=== PATIENT | male | born 1945 | race Two or more races ===

== ENCOUNTER 2024-05-30 10:48 | Outpatient (RCR) | payer MEDICARE, MEDICAID, SELFPAY ==
--- NOTE | 2024-05-30 11:12 | CTCFLWUP_ITS ---
[facility] [address] [place], [place] [address] FOLLOW-UP NOTE Date: 05/30/2024 MR#: [id number] Name: SHANELLE PITT : 1945 Dx: C61 Malignant neoplasm of prostate Identification. Patient was prostate CA Wendi score 6 status post radical prostatectomy performed 07/15/2023. pT2pN0. Patient's PSA manny to 4.24 in early 2023 and 6 months Lupron shot was given in [place] which should last till March according to family. 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 Patient then resumed his Lupron 04/24/2024. Labs 03/30/2024 revealed PSA less than 0.10. A#1. Radical prostatectomy performed for prostate CA 07/15/2023 pT2pN0 In [place]. Pathology reviewed by on 12/15/2023. A#2. Postop radiation for rising PSA of 4.24 along with concomitant Lupron injections. A#3. Most recent PSA less than 0.10 9 12 16. A#4. Follow-up in 3 months with another Lupron shot in June. Electronically signed by: Medhat Garnett M.D. 05/30/2024 11:09 AM
== END 2024-06-24 23:59 | disposition home or self-care (01) ==
LOC: SCTC 10:48
PROVIDERS: PCP Physician Assistant; Referring Provider Physician Assistant; Visit Provider Radiology Therapeutic Radiology
DX: C61 Malignant neoplasm of prostate (principal); Z90.79 Acquired absence of other genital organ(s); Z79.818 Long term (current) use of other agents affecting estrogen receptors and estrogen levels; Z92.3 Personal history of irradiation
CPT/HCPCS: 99213; G0463

== ENCOUNTER 2024-07-24 09:37 | Outpatient (RCR) | payer MEDICARE, MEDICAID, SELFPAY | END 2024-07-25 23:59 | disposition home or self-care (01) | LOC: SCTC 09:37 | PROVIDERS: PCP Physician Assistant; Referring Provider Physician Assistant; Visit Provider Radiology Therapeutic Radiology | DX: Z51.11 Encounter for antineoplastic chemotherapy (principal); C61 Malignant neoplasm of prostate; Z90.79 Acquired absence of other genital organ(s); Z92.3 Personal history of irradiation | CPT/HCPCS: 96402; J9217 ==

== ENCOUNTER 2024-08-03 13:07 | Outpatient (RCR) | payer MEDICARE, MEDICAID, SELFPAY ==
--- NOTE | 2024-08-03 14:07 | CTCFLWUP_ITS ---
[facility] [address] [place], [place] [address] FOLLOW-UP NOTE Date: 08/03/2024 MR#: [id number] Name: SHANELLE PITT : 1945 Dx: C61 Malignant neoplasm of prostate Patient was prostate CA Wendi score 6 had radical prostatectomy performed 07/15/2023 pT2 pN0. PSA manny to 4.24 in early 2023 and 6-month Lupron shot was given in [place] which should last till er according to family. 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 Patient does that 2 additional 3 months Lupron shots since the last in 07/24/2024. States that he has been having frequency nocturia and was given Detrol which has not helped. Shall prescribe Flomax 0.4 mg a day which is alpha-brenda can improve symptoms. Told family that he could take it as a single med or can combine with Detrol as needed. We shall reeval patient next month. Electronically signed by: Medhat Garnett M.D. 08/03/2024 2:05 PM
== END 2024-08-25 23:59 | disposition home or self-care (01) ==
LOC: SCTC 13:07
PROVIDERS: PCP Physician Assistant; Referring Provider Physician Assistant; Visit Provider Radiology Therapeutic Radiology
DX: C61 Malignant neoplasm of prostate (principal); Z90.79 Acquired absence of other genital organ(s); Z92.3 Personal history of irradiation
CPT/HCPCS: 99213; G0463

== ENCOUNTER → 2024-08-23 | Outpatient (CLI) | payer MEDICARE, MEDICAID, SELFPAY ==
[2024-08-23 09:42] LABS: Prostate Specific Antigen < 0.10 ng/mL (0-4.00)
== END | disposition home or self-care (01) ==
LOC: SCTO 08:08
PROVIDERS: PCP Physician Assistant; Referring Provider Radiology Therapeutic Radiology; Visit Provider Radiology Therapeutic Radiology
DX: C61 Malignant neoplasm of prostate (principal)
CPT/HCPCS: 36415; 84153

== ENCOUNTER 2024-08-30 08:47 | Outpatient (RCR) | payer MEDICARE, MEDICAID, SELFPAY ==
--- NOTE | 2024-08-30 09:51 | CTCFLWUP_ITS ---
[facility] [address] [place], [place] [address] FOLLOW-UP NOTE Date: 08/30/2024 MR#: [id number] Name: SHANELLE PITT : 1945 Dx: C61 Malignant neoplasm of prostate Identification. Patient with positive CA Wendi score 6 had radical mastectomy performed 07/15/2023 pT2pN0. [place] to 4.25 in early 2023 and 6-month Lupron shot was given in [place] which should last till March according to family. 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 Patient has since had 2 additional 3 months shots last given 07/24/2024. Experiencing frequency nocturia and Detrol has not helped. Neither did adding the Flomax. Patient's most recent PSA 08/23/2024 is less than 0.10. Told patient that we will skip the September injection due to favorable PSA and side effects of Lupron which may be contributing to the problems. Patient appeared to understand and agree with the recommendation. See patient in 3 months with PSA prior. Electronically signed by: Medhat Garnett M.D. 08/30/2024 9:49 AM
== END 2024-09-22 23:59 | disposition home or self-care (01) ==
LOC: SCTC 08:47
PROVIDERS: PCP Physician Assistant; Referring Provider Physician Assistant; Visit Provider Radiology Therapeutic Radiology
DX: C61 Malignant neoplasm of prostate (principal); Z90.79 Acquired absence of other genital organ(s); Z92.3 Personal history of irradiation
CPT/HCPCS: 99213; G0463

== ENCOUNTER → 2024-11-27 | Outpatient (CLI) | payer MEDICARE, MEDICAID, SELFPAY ==
[2024-11-27 09:38] LABS: Basophils % (Auto) 0 % (0-2.5); Eosinophils # (Auto) 0.1 Thou/mm3 (0.0-0.5); Eosinophils % (Auto) 2 % (0-10); Hematocrit 42.5 % (41.0-53.0); Hemoglobin 15.2 g/dL (13.5-16.0); Immature Granulocytes % (Auto) 0 % (0-0); Immature Granulocytes Auto 0.02 Thou/mm3 (0.00-0.00); Lymphocytes # (Auto) 1.4 Thou/mm3 (1.0-4.8); Lymphocytes % (Auto) 20 % (10-50); Mean Corpuscular HGB Conc 35.8 g/dl (31.0-37.0); Mean Corpuscular Hemoglobin 30.3 pg (25.0-35.0); Mean Corpuscular Volume 85 fL (80-100); Monocytes # (Auto) 0.6 Thou/mm3 (0.0-0.8); Monocytes % (Auto) 9 % (0-12); Neutrophils # (Auto) 4.7 Thou/mm3 (1.8-7.7); Neutrophils % (Auto) 69 % (37-80); Nucleated Red Blood Cell % 0 /100 WBC (0); Platelet Count 220 Thou/mm3 (140-440); RDW Standard Deviation 37.3 fL (35.1-43.9); Red Blood Count 5.01 Miln/mm3 (4.50-5.90); White Blood Count 6.8 Thou/mm3 (3.8-10.6)
[2024-11-27 09:49] LABS: Prostate Specific Antigen < 0.10 ng/mL (0-4.00)
[2024-11-27 09:58] LABS: Alanine Aminotransferase 56 U/L (10-49); Albumin, Serum 4.4 gm/dL (3.4-4.8); Albumin/Globulin Ratio 1.8 (1.2-2.2); Alkaline Phosphatase 120 U/L (46-116); Anion Gap 9 (7-16); Aspartate Amino Transferase 35 U/L (0-34); BUN/Creatinine Ratio 17 Ratio (12-20); Bilirubin,Total 0.5 mg/dL (0.3-1.2); Blood Urea Nitrogen 15 mg/dL (9-23); Calcium 8.9 mg/dL (8.3-10.6); Calcium (Corrected) 8.9 mg/dL (8.5-10.1); Carbon Dioxide 28.7 mMol/L (20.0-31.0); Chloride 104 mMol/L (98-107); Creatinine (Component) 0.9 mg/dL (0.6-1.3); Globulin 2.5 gm/dL (2.3-3.5); Glucose 110 mg/dL (74-106); Osmolality,Calculated 284 (275-295); Potassium 4.3 mMol/L (3.4-5.1); Sodium 142 mMol/L (136-145); Total Protein 6.9 gm/dL (5.7-8.2); eGFR > 60 See Note
== END | disposition home or self-care (01) ==
PROVIDERS: PCP Radiology Therapeutic Radiology; Referring Provider Radiology Therapeutic Radiology; Visit Provider Radiology Therapeutic Radiology
DX: C61 Malignant neoplasm of prostate (principal)
CPT/HCPCS: 36415; 80053; 84153; 85025

== ENCOUNTER 2024-11-30 07:53 | Outpatient (RCR) | payer MEDICARE, MEDICAID, SELFPAY ==
--- NOTE | 2024-11-30 09:06 | CTCFLWUP_ITS ---
[facility] [address] [place], [place] [address] FOLLOW-UP NOTE Date: 11/30/2024 MR#: [id number] Name: SHANELLE PITT : 1945 Dx: C61 Malignant neoplasm of prostate Identification. Patient with prostate CA Wendi score 6 had radical prostatectomy performed 07/15/2023 pT2pN0. In [place]. PSA manny to 4.25 in early 2023 and 6-month Lupron shot was given in [place]. Patient then received postoperation therapy 6840 centigrade completed in 01/13/2004. Patient received 2 additional 3 months shot the last 1 on 07/24/2024. Patient's PSA 11/27/2024 was less than 0.10. Patient experiencing only minor urinary symptoms. I will see him back in 6 months with another PSA. Electronically signed by: Medhat Garnett M.D. 11/30/2024 9:04 AM
== END 2024-12-23 23:59 | disposition home or self-care (01) ==
LOC: SCTC 07:53
PROVIDERS: PCP Physician Assistant; Referring Provider Physician Assistant; Visit Provider Radiology Therapeutic Radiology
DX: C61 Malignant neoplasm of prostate (principal); Z90.79 Acquired absence of other genital organ(s); Z92.3 Personal history of irradiation
CPT/HCPCS: 99213; G0463

== ENCOUNTER → 2025-05-29 | Outpatient (CLI) | payer MEDICARE, MEDICAID, SELFPAY ==
[2025-05-29 09:16] LABS: Prostate Specific Antigen < 0.10 ng/mL (0-4.00)
== END | disposition home or self-care (01) ==
LOC: SCTO 06:42
PROVIDERS: PCP Physician Assistant; Referring Provider Radiology Therapeutic Radiology; Visit Provider Radiology Therapeutic Radiology
DX: C61 Malignant neoplasm of prostate (principal)
CPT/HCPCS: 36415; 84153

== ENCOUNTER 2025-05-31 08:36 | Outpatient (RCR) | payer MEDICARE, MEDICAID, SELFPAY ==
--- NOTE | 2025-05-31 09:07 | CTCFLWUP_ITS ---
[facility] [address] [place], [place] [address] FOLLOW-UP NOTE Date: 05/31/2025 MR#: [id number] Name: SHANELLE PITT : 1945 Dx: C61 Malignant neoplasm of prostate Identification. Patient with prostate CA Wendi score 6 radical prostatectomy 07/15/2023 pT2 pN0 In [place] PSA manny to 4.25 in early 2023 and 6-month Lupron shot was given in [place]. Patient then received postoperation radiation therapy at 6840 cGy completed 01/13/2024. Patient received 2 additional 3 months Lupron shot last 1 on 07/24/2024. Most recent PSA 05/29/2025 was less than 0.10. Doing well overall with no significant pelvic symptoms. Will see him in 6 months with another PSA before. Electronically signed by: Medhat Garnett M.D. 05/31/2025 9:04 AM
== END 2025-06-24 23:59 | disposition home or self-care (01) ==
LOC: SCTC 08:36
PROVIDERS: PCP Physician Assistant; Referring Provider Physician Assistant; Visit Provider Radiology Therapeutic Radiology
DX: C61 Malignant neoplasm of prostate (principal)
CPT/HCPCS: 99212; G0463